=== PATIENT | female | born 1970 | race Two or more races ===

== ENCOUNTER 2023-05-12 14:36 | Emergency (ER) | payer OTHER ==
[~2023-05-12] VITALS: Ht 172.7 cm; Wt 125.6 kg
[2023-05-12] MEDS ORDERED: TOPROL XL100 M1 (15:23)
[2023-05-12] MEDS ORDERED: PANTOPRAZOLE SO40 MG (15:23)
[2023-05-12] MEDS ORDERED: ATORVASTATIN CA10 MG (15:23)
== END 2023-05-12 18:49 | disposition home or self-care (01) ==
LOC: ER 14:37
DX: S90.822A Blister (nonthermal), left foot, initial encounter (principal); X58.XXXA Exposure to other specified factors, initial encounter; Y93.01 Activity, walking, marching and hiking; Y92.89 Other specified places as the place of occurrence of the external cause; Y99.8 Other external cause status; M79.672 Pain in left foot; Z88.6 Allergy status to analgesic agent; Z88.8 Allergy status to other drugs, medicaments and biological substances